=== PATIENT | male | born 1930 | race Caucasian/White ===

== ENCOUNTER 2018-09-04 14:16 | Emergency (ER) | payer MEDICARE, BC ==
[~2018-09-04] VITALS: Ht 170.2 cm; Wt 68.0 kg
--- NOTE | 2018-09-04 16:21 | ED GU-Male ---
General Chief Complaint: Catheter/Drain/Tube Problems Stated Complaint: CATHETER ISSSUES Nursing Triage Note: Pt reports his urinary catheter is leaking, starting approx 1 hour COLLABORATIVE PHYSICIAN. Source: patient Exam Limitations: no limitations History of Present Illness Date Seen by Provider: Sep 04, 2018 Time Seen by Provider: 16:16 Initial Comments 88 yr old male with hx of marley catheter being place in stoma to his bladder that transits his scrotum presents with leakage from the catheter site. The stoma was created about 15 yrs ago at [facility] due to urethral stricture. He has been chronically been having hematuria and had to receive a transfusion and catheter placement a week ago at [facility]. He has an appointment tomorrow at with Dr. Alanis but does not want to wait until then to have this leakage addressed. No fever/chills or other sx reported. Timing/Duration: yesterday Severity/Quality: mild Allergies and Home Medications Patient Home Medication List Home Medication List Reviewed: Yes Review of Systems Review of Systems Constitutional: no symptoms reported EENTM: No blurred vision, No double vision, No throat pain Respiratory: No short of breath, No stridor Cardiovascular: no symptoms reported; No edema, No palpitations, No syncope Gastrointestinal: No abdominal pain, No diarrhea, No nausea, No vomiting Genitourinary: see HPI; denies frequency, denies flank pain, denies incontinence Musculoskeletal: no symptoms reported Skin: see HPI Psychiatric/Neurological: See HPI; Denies Paresthesia, Denies Seizure, Denies Tingling Endocrine: See HPI; Denies Excessive Sweating, Denies Flushing, Denies Increased Urine, Denies Other Hematologic/Lymphatic: Denies Other Past Kgaxnbo-Farrot-Jsdoau Hx Past Med/Social Hx: Reviewed Nursing Past Med/Soc Hx Patient Social History Recent Foreign Travel: No Contact w/Someone Who Travel: No Recent Infectious Disease Expo: No Physical Exam Vital Signs Vital Signs - First Documented 09/04/18 15:51 Temp 98.3 Pulse 83 Resp 18 B/P (MAP) 141/75 (97) Pulse Ox 100 O2 Delivery Room Air Capillary Refill : Less Than 3 Seconds Height, Weight, BMI Height: 5'7.00" Weight: 150lbs. oz. 68.574820kv; BMI Method:Stated General Appearance: no apparent distress HEENT: PERRL/EOMI, normal ENT inspection, TMs normal, pharynx normal Neck: non-tender, full range of motion, supple, normal inspection Cardiovascular: normal peripheral pulses, regular rate, rhythm, no edema, no gallop, no JVD, no murmur Respiratory: chest non-tender, lungs clear, normal breath sounds, no respiratory distress, no accessory muscle use Gastrointestinal: normal bowel sounds, non tender, soft, no organomegaly, no pulsatile mass Genital/Rectal: No normal genital exam (marley catheter enters stoma mid- scrotum. Minimal urinary leakage noted. ) Back: normal inspection, no CVA tenderness, no vertebral tenderness Extremities: normal range of motion, non-tender, normal inspection, no pedal edema, no calf tenderness Neurologic/Psychiatric: no motor/sensory deficits, alert Skin: normal color, warm/dry, rash (minimal at site of stoma) Lymphatic: no adenopathy Progress/Results/Core Measures Suspected Sepsis Recent Fever Within 48 Hours: No Infection Criteria Present: None New/Unexplained Altered Menta: No Sepsis Screen: No Definite Risk SIRS Temperature:98.3 Pulse: 83 Respiratory Rate: 18 Laboratory Tests 09/04/18 16:40: White Blood Count 7.7 Blood Pressure 141 /75 Mean: 97 Laboratory Tests 09/04/18 16:40: Creatinine 1.70H, Platelet Count 462H Results/Orders Lab Results Laboratory Tests Test 09/04/18 16:40 09/04/18 17:29 Range/Units White Blood Count 7.7 4.3-11.0 10^3/uL Red Blood Count 2.92 L 4.35-5.85 10^6/uL Hemoglobin 8.1 L 13.3-17.7 G/DL Hematocrit 26 L 40-54 % Mean Corpuscular Volume 89 80-99 FL Mean Corpuscular Hemoglobin 28 25-34 PG Mean Corpuscular Hemoglobin Concent 31 L 32-36 G/DL Red Cell Distribution Width 15.2 H 10.0-14.5 % Platelet Count 462 H 130-400 10^3/uL Mean Platelet Volume 9.6 7.4-10.4 FL Neutrophils (%) (Auto) 61 42-75 % Lymphocytes (%) (Auto) 23 12-44 % Monocytes (%) (Auto) 10 0-12 % Eosinophils (%) (Auto) 5 0-10 % Basophils (%) (Auto) 1 0-10 % Neutrophils # (Auto) 4.6 1.8-7.8 X 10^3 Lymphocytes # (Auto) 1.8 1.0-4.0 X 10^3 Monocytes # (Auto) 0.8 0.0-1.0 X 10^3 Eosinophils # (Auto) 0.4 H 0.0-0.3 10^3/uL Basophils # (Auto) 0.1 0.0-0.1 10^3/uL Sodium Level 136 135-145 MMOL/L Potassium Level 4.4 3.6-5.0 MMOL/L Chloride Level 101 98-107 MMOL/L Carbon Dioxide Level 21 21-32 MMOL/L Anion Gap 14 5-14 MMOL/L Blood Urea Nitrogen 30 H 7-18 MG/DL Creatinine 1.70 H 0.60-1.30 MG/DL Estimat Glomerular Filtration Rate 38 BUN/Creatinine Ratio 18 Glucose Level 113 H 70-105 MG/DL Calcium Level 8.9 8.5-10.1 MG/DL Urine Color RED H Urine Clarity TURBID Urine pH 6.5 5-9 Urine Specific [place] 1.020 1.016-1.022 Urine Protein 3+ H NEGATIVE Urine Glucose (UA) TRACE H NEGATIVE Urine Ketones 1+ H NEGATIVE Urine Nitrite POSITIVE H NEGATIVE Urine Bilirubin 3+ H NEGATIVE Urine Urobilinogen 4.0 NORMAL MG/DL Urine Leukocyte Esterase 2+ H NEGATIVE Urine RBC (Auto) 3+ H NEGATIVE Urine RBC TNTC H /HPF Urine WBC FEW /HPF Urine Crystals NONE /LPF Urine Calcium Oxalate Crystals /LPF Urine Bacteria 5+10 /HPF Urine Casts NONE /LPF Urine Mucus NEGATIVE /LPF Urine Culture Indicated YES My Orders Orders - JUAN PABLO PHILLIPS MD Basic Metabolic Panel (09/04/18 16:13) Cbc With Automated Diff (09/04/18 16:13) Ua Culture If Indicated (09/04/18 16:13) Bladder Scan (09/04/18 17:25) Continuous Bladder Irrigation (09/04/18 17:25) Urine Culture (09/04/18 17:29) Vital Signs/I&O 09/04/18 15:51 Temp 98.3 Pulse 83 Resp 18 B/P (MAP) 141/75 (97) Pulse Ox 100 O2 Delivery Room Air Capillary Refill : Less Than 3 Seconds Blood Pressure Mean: 97 Progress Note : Time: 16:22 Progress Note Will obtain CBC, BMP and UA to assess medical status and will plan to call [facility]. He states that he had normal urinary continence prior to catheter placement a week ago. He states that it was placed because of bleeding and infection. I discussed the plan with him and he is agreeable. 1525 Pt seems to have difficulty understanding that he can't go to the bathroom to micturate with the catheter in. He requests that we remove the catheter. I walked him through the thought process that the catheter was placed for a reason a week ago. He did grasp that concept and then agreed to leave the catheter in. The catheter was irrigated and then began to flow well. I explained that this was likely an issue of blood clots limiting the flow. Will await UA but do not feel that it would be prudent to remove the catheter tonight. He now agrees. 1803 Feeling better after catheter irrigated. He is comfortable with not removing catheter and going to [facility] and keeping his appointment tomorrow. Departure Impression Primary Impression: Obstructed Marley catheter Qualified Codes: T83.091A - Other mechanical complication of indwelling urethral catheter, initial encounter Additional Impressions: Hematuria Qualified Codes: R31.0 - Gross hematuria Hematuria, gross Disposition: 01 HOME, SELF-CARE Condition: Improved Departure-Patient Inst. Referrals: NO,LOCAL PHYSICIAN (PCP) Primary Care Physician ANTONY ALANIS MD (Family) Primary Care Physician Keep appointment tomorrow Patient Instructions: How to Care for Your Marley Catheter, Male JUAN PABLO PHILLIPS MD Sep 04, 2018 16:21
[2018-09-04 16:54] LABS: WHITE BLOOD COUNT 7.7 10^3/uL (4.3-11.0)
[2018-09-04 16:55] LABS: BASOPHILS % (AUTO) 1 % (0-10); EOSINOPHILS % (AUTO) 5 % (0-10); HEMATOCRIT 26 % (40-54); HEMOGLOBIN 8.1 G/DL (13.3-17.7); LYMPHOCYTES # (AUTO) 1.8 X 10^3 (1.0-4.0); LYMPHOCYTES % (AUTO) 23 % (12-44); MEAN CORPUSCULAR HEMOGLOBIN 28 PG (25-34); MEAN CORPUSCULAR HGB CONC 31 G/DL (32-36); MEAN CORPUSCULAR VOLUME 89 FL (80-99); MEAN PLATELET VOLUME 9.6 FL (7.4-10.4); MONOCYTES % (AUTO) 10 % (0-12); NEUTROPHILS # (AUTO) 4.6 X 10^3 (1.8-7.8); NEUTROPHILS % (AUTO) 61 % (42-75); PLATELET COUNT 462 10^3/uL (130-400); RED CELL DISTRIBUTION WIDTH 15.2 % (10.0-14.5)
[2018-09-04 16:56] LABS: BASOPHILS # (AUTO) 0.1 10^3/uL (0.0-0.1); EOSINOPHILS # (AUTO) 0.4 10^3/uL (0.0-0.3); MONOCYTES # (AUTO) 0.8 X 10^3 (0.0-1.0)
[2018-09-04 17:13] LABS: CALCIUM 8.9 MG/DL (8.5-10.1); CREATININE SERUM 1.7 MG/DL (0.60-1.30); POTASSIUM 4.4 MMOL/L (3.6-5.0)
--- NOTE | 2018-09-04 17:30 | NUR ---
Patients marley irrigated with 50 cc syringe with no resistance. Returned dark red urine with no clots noted.
[2018-09-04 17:46] LABS: CLARITY,URINE TURBID; COLOR,URINE RED
[2018-09-04 17:47] LABS: BACTERIA,URINE 5+10 /HPF; BILIRUBIN,URINE 3+ (NEGATIVE); GLUCOSE, URINE (UA) TRACE (NEGATIVE); KETONES,URINE 1+ (NEGATIVE); LEUKOCYTE ESTERASE ,URINE 2+ (NEGATIVE); NITRITE,URINE POSITIVE (NEGATIVE); PH,URINE 6.5 (5-9); PROTEIN,URINE 3+ (NEGATIVE); RBC,URINE TNTC /HPF; WBC,URINE FEW /HPF
[2018-09-04 18:22] VITALS: BP 141/75
== END 2018-09-04 18:10 | disposition home or self-care (01) ==
LOC: ER FS 14:19
DX: T83.091A Other mechanical complication of indwelling urethral catheter, initial encounter (principal); R31.0 Gross hematuria
CPT/HCPCS: 36415; 80048; 81000; 85025; 87088; 99283